=== PATIENT | female | born 2000 | race Caucasian/White ===

== ENCOUNTER 2022-01-29 21:07 | Emergency (ER) | payer MEDICAID, SELFPAY ==
[2022-01-29 21:24] VITALS: BP 150/78; PULSE 80; RESP 20; TEMP 37.1; O2SAT 96; BMI 34.2
[2022-01-29 21:57] VITALS: PULSE 130; RESP 22; TEMP 36.6; O2SAT 97
--- NOTE | 2022-01-29 23:09 | ED_ITS ---
HPI - General: Chief complaint: Vaginal Bleeding Stated complaint: 10 Weeks Preg\ABD Pain\Spotting Time Seen by Provider: 01/29/22 21:36 Source: patient Mode of arrival: ambulatory Limitations: no limitations History of Present Illness: 21-year-old female who states she is currently 10 weeks she states she has had some slight abdominal cramping especially over her uterus and has had some slight spotting over the last 2 days it is improved today she denies any abdominal pain currently no vomiting no diarrhea this is her third she states she is just concerned she had no bleeding with her previous pregnancies. She denies any worsening or improving factors Associated symptoms: Reports abdominal pain; Deny headache(s) Review of Systems Const: Denies: fever(s), chills, body aches or change in appetite Eyes: Denies: blurry vision or eye discomfort ENMT: Denies: throat pain or dental pain Card: Denies: chest pain Resp: Denies: dyspnea GI: Reports: abdominal pain : Reports: vaginal bleeding Musc: Denies: neck pain or back pain Skin/Breast: Denies: rash Neuro: Denies: headache(s) Psych: Denies: depression Isai/Lymph: Denies: easy bruising All/Imm: Denies: urticaria Physical Exam Const: COMMON NORMALS: no acute distress, patient oriented x3 and healthy appearing HENMT: COMMON NORMALS: normocephalic and atraumatic HEAD & SCALP: normocephalic and atraumatic Eye: COMMON NORMALS: Equal, round and reactive pupils present and EOMs intact bilaterally PUPIL: Yes Equal, round and reactive pupils present Neck/C-Spine: COMMON NORMALS: full ROM and supple Chest: COMMONS NORMALS: normal inspection of the chest and normal palpation of entire chest wall Resp: COMMON NORMALS: normal respiratory effort, No retractions, No use of accessory muscles and clear to auscultation bilaterally AUSCULTATION: clear to auscultation bilaterally Cardio: COMMON NORMALS: regular rate, regular rhythm and No murmurs present (Cardio) RATE: regular rate RHYTHM: regular rhythm GI: COMMON NORMALS: Normal to inspection, nondistended, normoactive bowel sounds present, Soft to palpation, non-tender and no masses PALPATION: Yes Soft to palpation Extremity: COMMON NORMALS: normal to inspection and full ROM Neuro: COMMON NORMALS: patient oriented x3, moves all extremities and no focal motor deficits Psych: COMMON NORMALS: mental status grossly normal, Normal thought process present and cooperative THOUGHT PROCESS: Normal thought process present Skin: COMMON NORMALS: no rashes or lesions noted and no wounds GENERAL SKIN EXAM: no rashes or lesions noted Course 2 Vital Signs: Vital signs: Vital Signs Temperature 97.8 F 01/29/22 21:57 Pulse Rate 130 H 01/29/22 21:57 Respiratory Rate 22 H 01/29/22 21:57 Blood Pressure 150/78 01/29/22 21:24 Pulse Oximetry 97 01/29/22 21:57 MDM - OB/Uterine Contractions Medical Decision Making Patient presents here with threatened miscarriage I did a bedside ultrasound showed IUP with good movement heart rate of 146. Patient abdominal exam is benign no signs of appendicitis I did offer a blood draw but she states that she mainly would make sure the baby is okay and she has an appoint with her OB on Monday and would like to just go home currently she is well-appearing here she said her blood type is a positive I informed her she does need to follow-up with OB as scheduled Monday return if worsening she understands agrees to plan. Discharge Plan Discharge Patient Disposition: Home Clinical Impression: Threatened miscarriage Condition: Stable Discharge Orders: Discharge ED (Routine); Ordered 01/29/22 Ordered By: Matt Reilly Discharge Diet: Advance as tolerated Discharge Activity: Resume usual activity Patient Instructions: Threatened Miscarriage (ED) Coding Level of Care Code ED Furniture Packer for Addy Betancourt
[2022-01-29 23:13] VITALS: BP 134/90; PULSE 90; RESP 16; O2SAT 99
[2022-01-29 23:22] VITALS: BP 134/90; PULSE 90; RESP 18; O2SAT 99
== END 2022-01-29 23:21 | disposition home or self-care (01) ==
PROVIDERS: Emergency Provider Emergency Medicine
DX: O20.0 Threatened abortion (principal); Z3A.10 10 weeks gestation of pregnancy
CPT/HCPCS: 99283

== ENCOUNTER → 2022-02-08 14:16 | Outpatient (BNVA) | payer MEDICAID, SELFPAY | PROVIDERS: Visit Provider Obstetrics & Gynecology | DX: Z34.81 Encounter for supervision of other normal pregnancy, first trimester (principal) | CPT/HCPCS: 80307; 84315; 85027; 86592; 86762; 86803; 86850; 86900; 87086; 87340; 87491; 87591; 87806 ==

== ENCOUNTER → 2022-03-08 09:09 | Outpatient (BNVA) | payer MEDICAID, SELFPAY | PROVIDERS: Visit Provider Obstetrics & Gynecology | DX: Z34.81 Encounter for supervision of other normal pregnancy, first trimester (principal) | CPT/HCPCS: 81000 ==

== ENCOUNTER 2022-04-12 07:32 | Outpatient (CLI) | payer MEDICAID, SELFPAY ==
--- NOTE | 2022-04-12 07:45 | US_ITS ---
WS: [id number] OBSTETRICAL ULTRASOUND COMPLETE HISTORY: Anatomy screening survey. COMPARISON: None available. Single intrauterine gestation in Cephalic presentation. Cervix is Closed and normal length. Cervical length is 4.3 cm. Normal amount of amniotic fluid surrounds the fetus. Placenta: Anterior, no previa or abruption. Placenta grade 1 Heart: 144 BPM. Four chambers are identified. Also tracts are difficult to visualize on today's exami nation. In part due to position and also maternal body habitus. Anatomy: Intracranial structures and spine are normal. kidneys, stomach and urinary bladd er are unremarkable. Abdominal wall, three-vessel cord and cord insertion site are normal. RIGHT arm is obscured by position. The remaining extremities are present. profile: Limited. Gender: Female. measurements: BPD = 4.7 cm = 20w2d HC = 19.4 cm = 21w4d AC = 16.8 cm = 21w6d FL = 3.7 cm = 21w6d EFW: 450 g. Biometry is internally concordant. AGA by ultrasound: 21w2d JUAN by ultrasound: 08/21/2022 US/US OB >= 14 weeks fetus [id number] IMPRESSION: 1. Single intrauterine gestation of 21w2d with an JUAN of 08/21/2022. 2. Limitations due to body habitus and position. Limited visualization o f the RIGHT arm, profile including lips and nose and also the cardiac out flow tracts. Remaining anatomy is negative.
== END 2022-04-12 07:33 | disposition home or self-care (01) ==
LOC: RAD 07:33
PROVIDERS: PCP Registered Nurse; Visit Provider Obstetrics & Gynecology
DX: Z34.92 Encounter for supervision of normal pregnancy, unspecified, second trimester (principal)
CPT/HCPCS: 76805

== ENCOUNTER → 2022-04-13 15:19 | Outpatient (BNVA) | payer MEDICAID, SELFPAY | PROVIDERS: PCP Registered Nurse; Visit Provider Internal Medicine Cardiovascular Disease | DX: R00.2 Palpitations (principal); Z86.79 Personal history of other diseases of the circulatory system; E28.2 Polycystic ovarian syndrome; Z3A.24 24 weeks gestation of pregnancy; I49.1 Atrial premature depolarization; I49.3 Ventricular premature depolarization; I49.8 Other specified cardiac arrhythmias | CPT/HCPCS: 93005; 93270; 99204 ==

== ENCOUNTER → 2022-04-15 09:04 | Outpatient (BNVA) | payer MEDICAID, SELFPAY | PROVIDERS: PCP Registered Nurse; Visit Provider Obstetrics & Gynecology | DX: Z34.90 Encounter for supervision of normal pregnancy, unspecified, unspecified trimester (principal) | CPT/HCPCS: 81000 ==

== ENCOUNTER → 2022-05-02 09:37 | Outpatient (BNVA) | payer MEDICAID, SELFPAY | PROVIDERS: PCP Registered Nurse; Visit Provider Obstetrics & Gynecology | DX: O09.92 Supervision of high risk pregnancy, unspecified, second trimester (principal); Z3A.00 Weeks of gestation of pregnancy not specified | CPT/HCPCS: 81000; 82950 ==

== ENCOUNTER 2022-05-31 14:00 | Outpatient (CLI) | payer MEDICAID, SELFPAY ==
--- NOTE | 2022-05-31 14:15 | USCV_ITS ---
Aicha Nance Age: 22 Gender: F : 2000 Exam Date: 05/31/2022 14:34 Ordering Phys: Lyoda Alfaro MD ([email or web address]) Technologist: DAHIANA [place] [facility] [place]: arrythmia. pt is 28 weeks preg BP: 114 / 73 HR: 91 Rhythm: Sinus Technical Quality: adequate MEASUREMENTS (Male / Female) Normal Values 2D ECHO LV Diastolic Diameter PLAX 4.3 cm 4.2 - 5.9 / 3.9 - 5.3 cm LV Systolic Diameter PLAX 3.0 cm IVS Diastolic Thickness 0.9 cm 0.6 - 1.0 / 0.6 - 0.9 cm IVS Systolic Thickness 1.2 cm LVPW Diastolic Thickness 0.7 cm 0.6 - 1.0 / 0.6 - 0.9 cm LVPW Systolic Thickness 1.4 cm LVOT Diameter 2.0 cm LV Ejection Fraction 2D Teich 57.1 % LV Ejection Fraction MOD 2C 64.4 % LV Ejection Fraction 2C AL 64.6 % LA Diameter 3.0 cm RA Width 3.4 cm RA Height 5.2 cm Aorta at Sinotubular Diameter 3.0 cm M-MODE MV E Point Septal Separation 0.5 cm DOPPLER AV Peak Velocity 165.0 cm/s LVOT Peak Velocity 111.0 cm/s AV Area Cont Eq vti 2.5 cm squared AV Area Cont Eq pk 2.2 cm squared MV Peak Velocity 88.0 cm/s MV Area PHT 4.9 cm squared Mitral E to A Ratio 1.2 MV E' Velocity 54.5 cm/s Mitral E to MV E' Ratio 6.2 Mitral E to LV E' Lateral Ratio 5.3 Mitral E to LV E' Septal Ratio 7.3 TR Peak Velocity 193.7 cm/s TR Peak Gradient 15.0 mmHg Right Atrial Pressure 5.0 mmHg Pulmonary Artery Systolic Pressu 20.0 mmHg PV Peak Velocity 106.0 cm/s FINDINGS Left Ventricle Normal left ventricular size and systolic function, EF 68 %. No regional wall motion abnormalities. Right Ventricle The right ventricle is normal in size and function. Right Atrium The right atrium is normal in size. Left Atrium The left atrium is normal in size. Mitral Valve No gross abnormalities noted Aortic Valve No gross abnormalities noted. Tricuspid Valve No gross abnormalities noted Pulmonic Valve No gross abnormalities noted Pericardium Normal pericardium without effusion. Aorta Normal ascending aorta dimension. IVC Inferior vena cava not visualized. CONCLUSIONS Normal left ventricular size and systolic function, EF 68 %. No regional wall motion abnormalities. Normal cardiac chamber sizes. No significant stenotic or regurgitant lesions based on the color-flow Doppler examination No intracardiac masses. No pericardial effusion. No similar previous studies are available for comparison Dr Loyda Alfaro MD FAC (Electronically Signed) Final Date: 31 May 2022 20:47 S
== END 2022-05-31 14:01 | disposition home or self-care (01) ==
LOC: RAD 14:01
PROVIDERS: PCP Registered Nurse; Visit Provider Internal Medicine Cardiovascular Disease
DX: R00.2 Palpitations (principal); R06.00 Dyspnea, unspecified; I49.9 Cardiac arrhythmia, unspecified; Z33.1 Pregnant state, incidental
CPT/HCPCS: 81000; 85027; 93306

== ENCOUNTER → 2022-06-09 09:57 | Outpatient (BNVA) | payer MEDICAID, SELFPAY | PROVIDERS: PCP Registered Nurse; Visit Provider Nurse Practitioner Family | DX: R00.2 Palpitations (principal) | CPT/HCPCS: 99213 ==

== ENCOUNTER → 2022-06-14 09:39 | Outpatient (BNVA) | payer MEDICAID, SELFPAY | PROVIDERS: PCP Registered Nurse; Visit Provider Obstetrics & Gynecology | DX: O09.90 Supervision of high risk pregnancy, unspecified, unspecified trimester (principal); O09.92 Supervision of high risk pregnancy, unspecified, second trimester; Z86.79 Personal history of other diseases of the circulatory system | CPT/HCPCS: 81000 ==

== ENCOUNTER → 2022-06-27 11:17 | Outpatient (BNVA) | payer MEDICAID, SELFPAY | PROVIDERS: PCP Registered Nurse; Visit Provider Obstetrics & Gynecology | DX: O09.90 Supervision of high risk pregnancy, unspecified, unspecified trimester (principal) | CPT/HCPCS: 81000 ==

== ENCOUNTER → 2022-07-12 12:02 | Outpatient (BNVA) | payer MEDICAID, SELFPAY | PROVIDERS: Visit Provider Nurse Practitioner Women's Health | DX: O09.90 Supervision of high risk pregnancy, unspecified, unspecified trimester (principal); O09.92 Supervision of high risk pregnancy, unspecified, second trimester; Z86.79 Personal history of other diseases of the circulatory system | CPT/HCPCS: 81000 ==

== ENCOUNTER → 2022-07-15 13:15 | Outpatient (BNVA) | payer MEDICAID, SELFPAY | PROVIDERS: Visit Provider Nurse Practitioner Women's Health | DX: O36.5930 Maternal care for other known or suspected poor fetal growth, third trimester, not applicable or unspecified (principal); Z3A.33 33 weeks gestation of pregnancy | CPT/HCPCS: 76816 ==

== ENCOUNTER → 2022-07-25 11:01 | Outpatient (BNVA) | payer MEDICAID, SELFPAY | PROVIDERS: Visit Provider Obstetrics & Gynecology | DX: O09.90 Supervision of high risk pregnancy, unspecified, unspecified trimester (principal); O09.899 Supervision of other high risk pregnancies, unspecified trimester; O09.92 Supervision of high risk pregnancy, unspecified, second trimester; Z86.79 Personal history of other diseases of the circulatory system | CPT/HCPCS: 81000; 87081 ==

== ENCOUNTER → 2022-08-01 11:25 | Outpatient (BNVA) | payer MEDICAID, SELFPAY | PROVIDERS: Visit Provider Obstetrics & Gynecology | DX: O09.92 Supervision of high risk pregnancy, unspecified, second trimester (principal); N89.8 Other specified noninflammatory disorders of vagina; O26.893 Other specified pregnancy related conditions, third trimester | CPT/HCPCS: 81000; 83986 ==

== ENCOUNTER → 2022-08-08 10:48 | Outpatient (BNVA) | payer MEDICAID, SELFPAY | PROVIDERS: Visit Provider Obstetrics & Gynecology | DX: O09.92 Supervision of high risk pregnancy, unspecified, second trimester (principal); Z86.79 Personal history of other diseases of the circulatory system | CPT/HCPCS: 81000 ==

== ENCOUNTER 2022-08-12 20:00 | Outpatient (CLI) | payer MEDICAID, SELFPAY ==
[2022-08-12 20:20] VITALS: BMI 36.6
[2022-08-12 20:25] VITALS: BP 130/79; PULSE 90
[2022-08-12 20:40] VITALS: BP 107/60; PULSE 92
[2022-08-12 20:55] VITALS: BP 106/59; PULSE 96
[2022-08-12 21:10] VITALS: BP 121/71; PULSE 116
[2022-08-12 21:11] VITALS: BP 123/70; PULSE 96
[2022-08-12 21:23] LABS: Nitrazine Paper, PH Negative
[2022-08-12 21:24] VITALS: BP 123/70; PULSE 96; RESP 16
== END 2022-08-12 21:24 | disposition home or self-care (01) ==
LOC: OPOB 20:17 → OBGYN 20:19
PROVIDERS: Visit Provider Obstetrics & Gynecology
DX: O26.899 Other specified pregnancy related conditions, unspecified trimester (principal); Z3A.00 Weeks of gestation of pregnancy not specified; N89.8 Other specified noninflammatory disorders of vagina
CPT/HCPCS: 59025; 83986; 99211

== ENCOUNTER 2022-08-14 10:10 | Inpatient (IN) | payer MEDICAID, SELFPAY ==
[2022-08-14] VITALS (35 sets, daily range): BP systolic 102–150; BP diastolic 50–109; PULSE 77–142; RESP 16–18; TEMP 36.2–37; O2SAT 95–97; BMI 36.2
[2022-08-14 10:33] LABS: Nitrazine Paper, PH Positive
[2022-08-14 10:36] LABS: Basophils % 0.2 %; Eosinophils % 0.5 %; Hematocrit 38.4 % (37.0-47.0); Hemoglobin 12.5 g/dL (11.5-15.3); Lymphocytes # 1.2 10^3/uL (0.8-4.8); Lymphocytes % 15.4 %; Mean Corpuscular HGB Conc 32.6 g/dL (30.0-36.0); Mean Corpuscular Hemoglobin 25.4 pg (28.0-34.0); Mean Corpuscular Volume 77.9 fl (81-99); Mean Platelet Volume 11.1 fL (7.4-10.4); Monocytes # 0.4 10^3/uL (0.2-0.9); Monocytes % 4.4 %; Neutrophils # 6.35 10^3/uL (1.8-7.7); Neutrophils % 79.1 %; Nucleated Red Blood Cells % 0 %; Platelet Count 237 10^3/cmm (130-400); Red Blood Count 4.93 10^6/uL (4.1-5.3); Red Cell Distribution Width 14.6 % (12.1-15.1)
--- NOTE | 2022-08-14 13:17 | P.HP_ITS ---
Providers/Chief Complaint Admitting Physician: Marisol Smith DO Chief Complaint: possible SROM History of Present Illness Aicha Nance is a 22 year old female at 38.6 wk IUP admitted with c/o SROM at 06:30 today. Pt denies bleeding, or problems during this . States she delivered quickly after she progressed to 2cm last . Admits to mild contractions, and good FM. Has hx of Cardiac palpitations has had Cardiac consult. Review of Systems General: Reports: 10 or more systems reviewed and unremarkable except in HPI and below Narrative: Head- Pt denies Headaches. Card: Reports: palpitations Medications/Allergies Home Medications Medication Instructions Recorded Confirmed Last Taken Type prenat.vits,constance,yzq-[id number]-brgwo 1 tab PO DAILY 02/08/22 08/14/22 08/13/22 09:00 History Allergies Allergy/AdvReac Type Severity Reaction Status Date / Time Sulfa (Sulfonamide Allergy Severe hives Verified 08/08/22 10:51 Antibiotics) PFSH Acute PFSH: Medical History PCOS (polycystic ovarian syndrome) Surgical History H/O oral surgery wisdom teeth extraction H/O removal of cyst right ovarian cyst S/P tonsillectomy Family History Grandmother Diabetes maternal and paternal Hypertension maternal Stroke maternal Grandfather Diabetes paternal Father Diabetes Hypertension Heart disease Mother Hyperlipidemia Hypertension Brother Heart disease Family/Other Breast cancer maternal great aunt, age unknown Ovarian cancer maternal great aunt, age unknown Denies family history of Colon cancer Clotting disorder Anesthesia complication Bleeding disorder Uterine cancer Thyroid condition Social History Smoking and tobacco status: former smoker Alcohol intake: never Female Reproductive History: : 3 Vitals/I&O/Wt Last Vital Signs Temp 97.2 F L 08/14/22 09:44 Pulse 103 H 08/14/22 12:42 Resp 16 08/14/22 09:51 BP 118/78 08/14/22 12:42 O2 Del Method 08/14/22 09:57 Weight last 48 hrs Weight 89.811 kg Physical Exam Narrative: 22yo C. female A&O x 3 in NAD HENMT: COMMON NORMALS: normocephalic, Normal external nose present and moist oral mucous membranes Resp: COMMON NORMALS: normal respiratory effort and clear to auscultation bilaterally Cardio: COMMON NORMALS: regular rate, regular rhythm and No murmurs present (Cardio) GI: COMMON NORMALS: Normal to inspection, nondistended, normoactive bowel sounds present and non-tender Back/Pelvis: OTHER: Cx- 1cm/40%/-2 clear fluid noted. Extremity: COMMON NORMALS: normal to inspection, no calf tenderness and no pedal edema Neuro: DEEP TENDON REFLEXES: Right patellar reflex intensity grade: 2+ Data : 08/14/22 10:15 A&P Assessment and plan (1) Supervision of high risk in second trimester: (2) Intermittent palpitations: (3) History of cardiac arrhythmia: Plan A. 38.6 wk IUP with SROM Hx of Precipitous Labor and Delivery GBS negative Hx of Cardiac Palpitations P. Admit to L/D Routine orders Augment with Pitocin if needed. Attestations Medical Necessity Statement*: Admit for management of labor. Coding Level of Care Code Acute Bench Press Operator for [facility] Fwd Exam Detailed Diagnoses Supervision of high risk in second trimester O09.92 Intermittent palpitations R00.2 History of cardiac arrhythmia Z86.79
[2022-08-14] MEDS: dextrose 5%-lactated ringers 1,000 ML 125 ML IV (13:50)
[2022-08-14] MEDS: oxytocin 30 UNIT/500 ML BAG IV (13:50)
--- NOTE | 2022-08-14 17:49 | PM.DELIVERY ---
Delivery Note: Date of delivery: August 14, 2022 Pre-delivery diagnoses: 1. 38.6-week IUP 2. SROM 3. GBS negative 4. History of precipitous delivery 5. History of cardiac arrhythmia-palpitations 6. History of PCOS Post-delivery diagnoses: S/p viable female 9/9 weight?pending Procedure: 22-year-old female G3, P2 delivered via a viable female vertex presented in OA presentation and delivered over the perineum, the anterior followed by the posterior shoulders delivered with the remainder of the baby's body to follow. Spontaneous cry was noted. The oral and nasal pathways bulb suctioned. The umbilical cord was clamped after a delay and transected by the father. Three-vessel cord noted. Baby was then placed on the mother's chest for bonding. Cord blood was obtained from the cord. The uterus was massaged and the placenta presented in a Owen presentation spontaneously. Pitocin in the IV solution was started and a bolus. The uterus was massaged and noted to be firm. Bleeding minimal. The perineum was examined, a small laceration was suture ligated with 1 simple interrupted stitch of 3-0 chromic. Mother and infant are both in stable and satisfactory condition. Sponge needle and instrument count correct. Delivering Physician: Whitney Smith DO Estimated blood loss (mL): 300 Findings: Normal female baby History History History 3 Term 2 0 Miscarriages/Ectopic 0 Living Children 2 Past Pregnancies Del. Date GA/Weeks Outcome Route Wt Inf Gender Labor Lgth Comp. Anesthesia Location 08/14/22 38 live - full term Vaginal Female Delivery Date: 08/14/22 Last Updated by: Marisol Smith DO No complications A&P Assessment and plan (1) Spontaneous vaginal delivery: P. care (2) Supervision of high risk in second trimester: (3) PCOS (polycystic ovarian syndrome): (4) Intermittent palpitations: (5) History of cardiac arrhythmia: Coding Level of Care Code Acute Hand Salter for Chg Fwd Diagnoses Spontaneous vaginal delivery O80 Supervision of high risk in second trimester O09.92 PCOS (polycystic ovarian syndrome) E28.2 Intermittent palpitations R00.2 History of cardiac arrhythmia Z86.79
[2022-08-14] MEDS: HYDROcodone-acetaminophen 5-325 mg Tablet PO (19:05)
[2022-08-15 03:30] VITALS: BP 103/87; PULSE 75; RESP 17; TEMP 36.2; O2SAT 97
[2022-08-15 05:42] LABS: Hematocrit 36.1 % (37.0-47.0); Hemoglobin 11.8 g/dL (11.5-15.3); Mean Corpuscular HGB Conc 32.7 g/dL (30.0-36.0); Mean Corpuscular Hemoglobin 25.5 pg (28.0-34.0); Mean Corpuscular Volume 78.1 fl (81-99); Platelet Count 256 10^3/cmm (130-400); Red Blood Count 4.62 10^6/uL (4.1-5.3); Red Cell Distribution Width 14.7 % (12.1-15.1); White Blood Count 11.8 10^3/uL (4.0-10.0)
[2022-08-15 07:26] VITALS: BP 106/71; PULSE 69; RESP 15; TEMP 36.5
[2022-08-15] MEDS: ibuprofen 800 mg tablet PO ×2 (09:39→14:55)
[2022-08-15] MEDS: docusate sodium 100 mg Capsule PO (09:39)
[2022-08-15] MEDS: prenatal vitamin Capsule 1 CAP PO (09:39)
--- NOTE | 2022-08-15 14:14 | PM.OBGYDC ---
Discharge Providers LABORATORY ANALYST Date of Admission: 08/14/22 10:10 Date of Discharge: 08/15/22 Attending Provider at Admission: Marisol Smith DO Attending Provider at Discharge: Marisol Smith DO Diagnoses at Discharge Discharge Diagnosis (1) Spontaneous vaginal delivery: Status: Acute (2) Supervision of high risk in second trimester: Status: Acute (3) PCOS (polycystic ovarian syndrome): Status: Acute (4) Intermittent palpitations: Status: Acute (5) History of cardiac arrhythmia: Status: Acute Reason for Visit Reason for Visit: possible SROM Hospital Course Hospital Course 22-year-old female G3, P3 status post spontaneous vaginal delivery on 08/14/2022 with no complications. Patient denies headaches blurred vision chest pain or shortness of breath. She is caring for and breast-feeding without nursing assistance. Discussion of discharge expectations, no heavy lifting pushing pulling no sex, douching, tampons x6 weeks patient is to continue her vitamins daily as long as she is breast-feeding. Increase fluids encouraged. VSS, afebrile Exam?abdomen soft fundus firm below umbilicus Extremities?no edema negative Homans' sign. Information Peripartum Data: Infant Delivery Method: Vaginal Laceration description: Superficial complications: none History History History 3 Term 3 0 Miscarriages/Ectopic 0 Living Children 3 Past Pregnancies Del. Date GA/Weeks Outcome Route Wt Inf Gender Labor Lgth Comp. Anesthesia Location 08/14/22 38 live - full term Vaginal Female Delivery Date: 08/14/22 Last Updated by: Marisol Smith DO No complications Discharge Data Studies Completed and Pending Laboratory Results WBC 11.8 10^3/uL (4.0-10.0) H 08/15/22 05:40 RBC 4.62 10^6/uL (4.1-5.3) 08/15/22 05:40 Hgb 11.8 g/dL (11.5-15.3) 08/15/22 05:40 Hct 36.1 % (37.0-47.0) L 08/15/22 05:40 MCV 78.1 fl (81-99) L 08/15/22 05:40 MCH 25.5 pg (28.0-34.0) L 08/15/22 05:40 MCHC 32.7 g/dL (30.0-36.0) 08/15/22 05:40 RDW 14.7 % (12.1-15.1) 08/15/22 05:40 Plt Count 256 10^3/cmm (130-400) 08/15/22 05:40 MPV 11.0 fL (7.4-10.4) H 08/15/22 05:40 Neut % (Auto) 79.1 % 08/14/22 10:15 Lymph % (Auto) 15.4 % 08/14/22 10:15 [place] % (Auto) 4.4 % 08/14/22 10:15 Eos % (Auto) 0.5 % 08/14/22 10:15 Baso % (Auto) 0.2 % 08/14/22 10:15 Neut # (Auto) 6.35 10^3/uL (1.8-7.7) 08/14/22 10:15 Lymph # (Auto) 1.2 10^3/uL (0.8-4.8) 08/14/22 10:15 [place] # (Auto) 0.4 10^3/uL (0.2-0.9) 08/14/22 10:15 Eos # (Auto) 0.0 10^3/uL (0.0-0.8) 08/14/22 10:15 Baso # (Auto) 0.0 10^3/uL (0.0-0.1) 08/14/22 10:15 Nucleated RBC % (auto) 0 % 08/14/22 10:15 Nucleated RBCs # 0.0 /100WBC 08/14/22 10:15 Vitals Last Vital Signs Temp 97.7 F 08/15/22 07:26 Pulse 69 08/15/22 07:26 Resp 15 08/15/22 07:26 BP 106/71 08/15/22 07:26 Pulse Ox 97 08/15/22 03:30 O2 Del Method 08/15/22 03:30 Discharge Plan Discharge Patient Disposition: Home Condition: Stable Prescriptions: No Action prenat.vits,constance,[id number] Tablet 1 tab PO DAILY Discharge Orders: Discharge Order (Routine); Ordered 08/15/22 Ordered By: Marisol Smith Discharge Diet: Regular Discharge Activity: Limit activity as instructed Patient Instructions: Opioid Safety Assessment: 1. S/P Plan of Treatment: DC to home this PM, F/U 4 wk with OB Discharge Attestations LABORATORY ANALYST Time Spent in Discharge Care*: less than 30 min Coding Level of Care Code Acute Belt And Link Assembly Supervisor for Chg Fwd Diagnoses Spontaneous vaginal delivery O80 Supervision of high risk in second trimester O09.92 PCOS (polycystic ovarian syndrome) E28.2 Intermittent palpitations R00.2 History of cardiac arrhythmia Z86.79
[2022-08-15 16:00] VITALS: BP 106/72; PULSE 70; RESP 16; TEMP 36.6
[2022-08-15 19:50] VITALS: BP 108/78; PULSE 82; RESP 17; RESP 18; TEMP 36.7; O2SAT 98
== END 2022-08-15 20:00 | disposition home or self-care (01) | DRG 807 ==
LOC: OPOB 10:11 → OBGYN 10:11
PROVIDERS: Admitting Provider Obstetrics & Gynecology; Visit Provider Obstetrics & Gynecology
DX: O99.284 Endocrine, nutritional and metabolic diseases complicating childbirth (principal); Z37.0 Single live birth; E28.2 Polycystic ovarian syndrome; O70.0 First degree perineal laceration during delivery; O75.89 Other specified complications of labor and delivery; R00.2 Palpitations; Z3A.38 38 weeks gestation of pregnancy; Z87.891 Personal history of nicotine dependence; Z86.79 Personal history of other diseases of the circulatory system; Z87.59 Personal history of other complications of pregnancy, childbirth and the puerperium
CPT/HCPCS: 12345; 36415; 59025; 59409; 83986; 85025; 85027; 99211; J2590; J7121

== ENCOUNTER → 2022-10-31 10:12 | Outpatient (BNVA) | payer MEDICAID, SELFPAY | PROVIDERS: Visit Provider Obstetrics & Gynecology | DX: R30.0 Dysuria (principal) | CPT/HCPCS: 81000; 87086 ==

== ENCOUNTER → 2023-02-02 15:19 | Outpatient (BNVA) | payer MEDICAID, SELFPAY | PROVIDERS: Visit Provider Nurse Practitioner Women's Health | DX: R23.3 Spontaneous ecchymoses (principal) | CPT/HCPCS: 85025 ==

== ENCOUNTER → 2023-03-21 13:45 | Outpatient (BNVA) | payer MEDICAID, SELFPAY | PROVIDERS: Visit Provider Nurse Practitioner Women's Health | DX: L65.9 Nonscarring hair loss, unspecified (principal); N93.9 Abnormal uterine and vaginal bleeding, unspecified; N39.3 Stress incontinence (female) (male) | CPT/HCPCS: 82306; 84443; 85025 ==

== ENCOUNTER → 2023-04-03 11:08 | Outpatient (BNVA) | payer MEDICAID, SELFPAY | PROVIDERS: Visit Provider Nurse Practitioner Women's Health | DX: N93.9 Abnormal uterine and vaginal bleeding, unspecified (principal); N83.202 Unspecified ovarian cyst, left side; N83.201 Unspecified ovarian cyst, right side | CPT/HCPCS: 76830 ==

== ENCOUNTER → 2025-09-17 08:26 | Outpatient (BNVA) | payer MEDICAID, SELFPAY | PROVIDERS: Visit Provider Nurse Practitioner Family | DX: N39.0 Urinary tract infection, site not specified (principal) | CPT/HCPCS: 81000 ==